=== PATIENT | male | born 1950 | race Caucasian/White ===

== ENCOUNTER → 2016-09-08 | Outpatient (CLI) | payer MEDICARE ==
--- NOTE | 2016-09-08 14:00 | REP ---
CHEST, TWO VIEWS: HISTORY: Abnormal EKG. COMPARISON: 10/18/2012. A small ill-defined parenchymal density is present in the left lower lobe. The right lung is clear. The heart is normal in size. The pulmonary vasculature is normal in appearance. There are old healed right rib fractures. Degenerative change is present in the thoracic spine. IMPRESSION: There is a small ill-defined parenchymal density in the left lower lobe. This may represent a granuloma, however, CT of the chest is recommended for further evaluation to exclude a mass. Signed by Rich Alvarez MD 09/08/2016 02:01 P
== END ==
LOC: M WUC 10:58
PROVIDERS: ATTEND Physician Assistant
DX: R94.31 Abnormal electrocardiogram [ECG] [EKG] (principal); J98.4 Other disorders of lung

== ENCOUNTER → 2016-09-16 | Outpatient (CLI) | payer MEDICARE ==
[~2016-09-16] MED LIST: ISOVUE-370 76% 100ML VIAL (Q9967) As Ordered ONE
--- NOTE | 2016-09-16 15:29 | REP ---
REASON: Abnormal pulmonary function study. PRIOR: CT none. CONTRAST: 100 mL Isovue 370. Previous plain film examination of the chest 09/08/2016 showed an ill-defined opacity in the left lower lobe. There is no mediastinal or hilar adenopathy. There are no pleural or pericardial effusions. The imaged upper abdomen shows a markedly fatty infiltrated pancreas with very little visible pancreatic tissue. Bone window technique throughout the exam shows chronic spinal degenerative changes and multiple old healed right sided rib fractures. Evaluation of the lung rosado show scattered bibasilar asymmetric densities with cylindrical bronchiectasis. Small cystic air-spaces are seen in the lung apical regions. Linear calcific densities are seen in the left lung apical region almost having the appearance of a tiny surgical staple line, however, the patient denies even having had lung surgery. Mild irregular pleural thickening is seen in the left mid and lower lung zones laterally. IMPRESSION: 1. Chronic changes with evidence of cylindrical basilar bronchiectasis, lung field hyperexpansion, and emphysema. 2. Odd linear calcifications in the left lung apex. There is no Fleischner's Society criteria on the recommendation for followup of such an abnormality, however, since there are no prior chest CTs available for comparison. I would recommend a 3 month followup with consideration made for pulmonary consultation. 3. Markedly abnormal pancreas as described above. This needs to be correlated clinically. 4. No other findings as described above. Signed by Karlo Kidd DO 09/16/2016 03:37 P
== END ==
LOC: M RAD 08:24
PROVIDERS: ATTEND Physician Assistant
DX: R94.2 Abnormal results of pulmonary function studies (principal); J47.9 Bronchiectasis, uncomplicated; K86.89 Other specified diseases of pancreas
CPT/HCPCS: 71260; Q9967

== ENCOUNTER → 2016-09-22 | Outpatient (CLI) | payer MEDICARE ==
[2016-09-22 11:01] LABS: ALBUMIN 3.8 GM/DL (3.2-5.2); ALBUMIN/GLOBULIN RATIO 1.12 (1.00-1.93); ALKALINE PHOSPHATASE 75 U/L (45-117); ALT/SGPT 35 U/L (12-78); AMYLASE 42 U/L (25-115); AST/SGOT 22 U/L (15-37); BILIRUBIN,DIRECT 0.3 MG/DL (0.0-0.2); BILIRUBIN,TOTAL 1.4 MG/DL (0.2-1.0); TOTAL PROTEIN 7.2 GM/DL (6.4-8.2)
== END ==
LOC: M LAB 10:02
PROVIDERS: ATTEND Internal Medicine Gastroenterology
DX: R93.3 Abnormal findings on diagnostic imaging of other parts of digestive tract (principal)

== ENCOUNTER → 2016-09-30 | Outpatient (CLI) | payer MEDICARE ==
--- NOTE | 2016-09-30 10:43 | REP ---
MRI STUDY OF THE ABDOMEN WITHOUT AND WITH IV GADOLINIUM: HISTORY: Abnormality of the gastrointestinal tract on diagnostic imaging. Comparison chest CT study September 16, 2016 shows fatty replacement of the pancreas. There is fatty infiltration of the liver visible as well. TECHNIQUE: Axial and coronal imaging planes utilized. T1- and T2-weighted sequences include TRUE FISP, in- and [id number], spin echo, turbo spin echo, and sequentially obtained dynamic postcontrast 2D gradient echo fat sat images. Gadolinium enhancement dose is 17 mL of intravenous ProHance. MRI FINDINGS: No hepatic or splenic lesion is seen on pre- or post-contrast images. There is decreased signal intensity in a geographic pattern in the liver on [id number] imaging confirming fairly widespread fatty infiltration of the liver. No adrenal lesion is seen. The kidneys enhance symmetrically and appear morphologically intact. There are small parapelvic cysts in the lower pole of the left kidney. No gallbladder abnormality is appreciated. Diffuse pancreatic lipomatosis is observed and confirmed correlated with the CT findings. Common bile and pancreatic ducts are present but surrounded by a homogeneous fatty replacement the pancreas. No pancreatic mass lesion is seen. No retroperitoneal mass or adenopathy is seen. No other abnormal gadolinium enhancement is appreciated. IMPRESSION: Fairly complete pancreatic lipomatosis, type 2B. This is most often associated with obesity and aging. It is also seen in cystic fibrosis, diabetes, hyperlipidemia, Stickney syndrome and some rare genetic syndromes. There is also fatty infiltration of the liver. No other significant abnormality. Signed by Morales Covarrubias MD 09/30/2016 12:39 P
== END ==
LOC: M RAD 07:56
PROVIDERS: ATTEND Internal Medicine Gastroenterology
DX: R93.3 Abnormal findings on diagnostic imaging of other parts of digestive tract (principal); E88.2 Lipomatosis, not elsewhere classified; K76.0 Fatty (change of) liver, not elsewhere classified
CPT/HCPCS: 74183; A9576

== ENCOUNTER 2019-02-22 08:53 | Day surgery (SDC) | payer MEDICARE ==
[~2019-02-22] VITALS: Ht 175.3 cm; Wt 82.1 kg
[~2019-02-22 08:53] MED LIST changes: -ISOVUE-370 76% 100ML VIAL (Q9967) As Ordered ONE; +NS 1,000 ML IV ONE
[2019-02-22] MEDS ORDERED: LIDOCAINE 2% INJ 100 MG/5 ML SDV (FOR ANES.) As Ordered ONE (09:58)
[2019-02-22] MEDS ORDERED: PROPOFOL 200 MG/20 ML VIAL As Ordered ONE ×2 (09:58→10:12)
--- NOTE | 2019-02-22 10:31 | ROOR ---
Patient Name: Galen Aburto Procedure Date: 02/22/2019 10:04 AM Date of : 1950 Age: 68 Room: [facility] Gender: Male Note Status: Finalized Procedure: Colonoscopy Indications: High risk colon cancer surveillance: Personal history of colonic polyps, Last colonoscopy: December 2015 Providers: Diego MILLARD MD Referring MD: ARIELA BLOOM Requesting Provider: Medicines: Monitored Anesthesia Care Complications: No immediate complications. Procedure: Pre-Anesthesia Assessment: - The heart rate, respiratory rate, oxygen saturations, blood pressure, adequacy of pulmonary ventilation, and response to care were monitored throughout the procedure. The Colonoscope was introduced through the anus and advanced to the cecum, identified by appendiceal orifice and ileocecal valve. The colonoscopy was performed without difficulty. The patient tolerated the procedure well. The quality of the bowel preparation was good. Findings: The perianal and digital rectal examinations were normal. Five sessile polyps were found in the sigmoid colon, descending colon and ascending colon. The polyps were 5 to 7 mm in size. These polyps were removed with a cold snare. Resection and retrieval were complete. A few small-mouthed diverticula were found in the sigmoid colon. Internal hemorrhoids were found during retroflexion. The hemorrhoids were moderate. Impression: - Five 5 to 7 mm polyps in the sigmoid colon, in the descending colon and in the ascending colon, removed with a cold snare. Resected and retrieved. - Mild diverticulosis in the sigmoid colon. - Internal hemorrhoids. Recommendation: - Repeat colonoscopy in 3 years for surveillance. Diego Millard MD Diego MILLARD MD 02/22/2019 10:30:59 AM Electronically signed by Diego MILLARD MD Number of Addenda: 0 Note Initiated On: 02/22/2019 10:04 AM Estimated Blood Loss: Estimated blood loss: none.
[2019-02-22 10:55] VITALS: BP 131/68
== END 2019-02-22 11:02 | disposition home or self-care (01) ==
LOC: M OPP 08:53
PROVIDERS: ATTEND Internal Medicine Gastroenterology
DX: Z12.11 Encounter for screening for malignant neoplasm of colon (principal); Z86.010 Personal history of colon polyps; D12.5 Benign neoplasm of sigmoid colon; D12.4 Benign neoplasm of descending colon; D12.2 Benign neoplasm of ascending colon; K64.8 Other hemorrhoids; K57.30 Diverticulosis of large intestine without perforation or abscess without bleeding

== ENCOUNTER 2022-09-17 09:03 | Day surgery (SDC) | payer MEDICARE ==
[~2022-09-17] VITALS: Ht 176.5 cm; Wt 73.9 kg
[~2022-09-17 09:03] MED LIST changes: +SYNT50TA PO
[2022-09-17] MEDS ORDERED: propofoL 200 MG/20 ML VIAL As Ordered ONE ×2 (11:11→11:24)
[2022-09-17 12:15] VITALS: BP 105/56
== END 2022-09-17 12:18 | disposition home or self-care (01) ==
LOC: M OPP 09:03
PROVIDERS: ATTEND Internal Medicine Gastroenterology
DX: Z86.010 Personal history of colon polyps (principal); D12.5 Benign neoplasm of sigmoid colon; K63.5 Polyp of colon; K57.30 Diverticulosis of large intestine without perforation or abscess without bleeding; K64.8 Other hemorrhoids

== ENCOUNTER → 2023-11-14 | Outpatient (REF) | payer MEDICARE ==
[~2023-11-14] MED LIST changes: -NS 1,000 ML IV ONE
== END ==
LOC: M LAB REF 07:37
PROVIDERS: ATTEND Surgery
DX: L72.0 Epidermal cyst (principal)